=== PATIENT | female | born 1985 ===

== ENCOUNTER 2018-08-17 15:32 | Emergency (ER) | payer OTHER ==
[2018-08-17 15:32] VITALS: BMI 30.7
[2018-08-17 15:56] VITALS: RESP 18; TEMP 98.8
[2018-08-17 16:55] LABS: INFLUENZA A B NEGATIVE FOR FLU A/B (NEGATIVE)
[2018-08-17] MEDS ORDERED: Amoxicillin-Clav 875-125 mg Tab PO STA (17:57)
[2018-08-17 18:28] VITALS: BP 128/83; PULSE 88; O2SAT 98
--- NOTE | 2018-08-18 02:22 | ED PDOC ---
Arrival/HPI - General Chief Complaint: ENT Problem Time Seen by Provider: 08/17/18 15:35 Historian: Patient - History of Present Illness Narrative History of Present Illness (Text): 33 y/o with no significant PMH presents to ED c/o left ear pain and sore throat x 2 days. Associated intermittent productive cough. Taking ibuprofen for the pain, last dose yesterday, with mild relief. Denies fever, headache, dizziness, chills, hearing loss, ear discharge, vision changes, difficulty swallowing or breathing, SOB, chest pain, back pain, neck pain, abdominal pain, N/V, or any other associated symptoms. Past Medical History - Provider Review Nursing Documentation Reviewed: Yes - Infectious Disease Hx of Infectious Diseases: None - Psychiatric Hx Substance Use: No - Surgical History Hx Section: Yes (x1) - Anesthesia Hx Anesthesia: Yes Hx Anesthesia Reactions: No Hx Malignant Hyperthermia: No Family/Social History - Physician Review Nursing Documentation Reviewed: Yes Family/Social History: No Known Family HX Smoking Status: Never Smoked Hx Alcohol Use: No Hx Substance Use: No Allergies/Home Meds Allergies/Adverse Reactions: Allergies No Known Allergies Allergy (Verified 04/21/18 10:06) Review of Systems - Physician Review All systems were reviewed & negative as marked: Yes - Review of Systems Constitutional: Normal. absent: Fevers Eyes: Normal. absent: Vision Changes ENT: Sore Throat, Sinus Congestion, Other (ear pain) Respiratory: Cough, Sputum. absent: SOB Cardiovascular: Normal. absent: Chest Pain, Palpitations Gastrointestinal: Normal. absent: Abdominal Pain, Stool Changes, Nausea, Vomiting, Appetite Changes Genitourinary Female: Normal Musculoskeletal: Normal. absent: Arthralgias, Back Pain, Neck Pain Skin: Normal. absent: Rash Neurological: Normal. absent: Headache, Dizziness, Focal Weakness Endocrine: Normal Hemo/Lymphatic: Normal Psychiatric: Normal Physical Exam Vital Signs Reviewed: Yes Vital Signs Temp Pulse Resp BP Pulse Ox 08/17/18 17:32 88 18 128/83 98 08/17/18 15:32 98.8 F 77 18 141/91 H 99 Temperature: Afebrile Blood Pressure: Hypertensive Pulse: Regular Respiratory Rate: Normal Appearance: Positive for: Well-Appearing, Non-Toxic, Comfortable Pain Distress: None Mental Status: Positive for: Alert and Oriented X 3 - Systems Exam Head: Present: Atraumatic, Normocephalic Pupils: Present: PERRL Extroacular Muscles: Present: EOMI Conjunctiva: Present: Normal Ears: Present: Normal (right side), Erythema (left TM), TM Bulging (and dull left TM). No: Other (NO mastoid tenderness or bogginess) Mouth: Present: Moist Mucous Membranes Pharnyx: Present: ERYTHEMA (bilateral tonsils). No: EXUDATE, TONSILS ENLARGED, Peritonsilar Swelling, Uvular Deviation Nose (External): Present: Atraumatic Nose (Internal): Present: Moist, Engorged, Rhinorrhea Neck: Present: Normal Range of Motion. No: Meningeal Signs, MIDLINE TENDERNESS Respiratory/Chest: Present: Clear to Auscultation, Good Air Exchange. No: Respiratory Distress, Accessory Muscle Use Cardiovascular: Present: Regular Rate and Rhythm, Normal S1, S2, Peripheal Pulses Present. No: Murmurs Upper Extremity: Present: Normal Inspection, Normal ROM, NORMAL PULSES, Neurovascularly Intact, Capillary Refill < 2s. No: Cyanosis, Edema Lower Extremity: Present: Normal Inspection, NORMAL PULSES, Normal ROM, Neurovascularly Intact, Capillary Refill < 2 s. No: Edema Neurological: Present: GCS=15, CN II-XII Intact, Speech Normal, Motor Func Grossly Intact, Normal Sensory Function, Gait Normal Skin: Present: Warm, Dry, Normal Color. No: Rashes Lymphatic: Present: Cervical Adenopathy (left peritonsillar, submandibular) Psychiatric: Present: Alert, Oriented x 3, Normal Insight, Normal Concentration, Normal Affect, Normal Mood Medical Decision Making ED Course and Treatment: Initial Plan: * CXR * Rapid Strep * Rapid Flu * Ibuprofen Rapid flu and strep negative CXR negative for acute disease Diagnostic testing results and plan of care discussed with patient. Strict instructions given regarding prescription use, importance of followup, and signs/symptoms to return to ER including fever, chills, abdominal pain, headache, vision changes, SOB, or any other new/worsening symptoms. Pt verbalized understanding of discussion. Patient is A&Ox3, ambluating with steady gait, with vital signs stable for discharge. - Lab Interpretations Lab Results: Lab Results 08/17/18 16:24: Influenza Typ A,B (EIA) Negative for flu a/b, Grp A Beta Strep Ag Negative I have reviewed the lab results: Yes Interpretation: All labs normal - RAD Interpretation Narrative RAD Interpretations (Text): No active disease Radiology Orders: 08/17/18 16:46 CXR (PA/LAT) [CHEST TWO VIEWS (PA/LAT)] [RAD] Stat Logging Equipment Operator: ED Physician (Dr. Lake) - Medication Orders Current Medication Orders: Discontinued Medications Amoxicillin/Clavulanate Potassium (Augmentin 875 Mg-125 Mg Tab) 1 tab PO STAT STA; Protocol Stop: 08/17/18 17:58 Last Admin: 08/17/18 18:17 Dose: 1 tab Ibuprofen (Motrin Tab) 600 mg PO STAT STA Stop: 08/17/18 17:25 Last Admin: 08/17/18 17:41 Dose: 600 mg MAR Pain/Vitals Document 08/17/18 17:41 EWO (Rec[place] 08/17/18 17:41 [place] [facility] [place] Pain Reassessment Is This A Pain ReAssessment? No Sleep Is patient sleeping during reassessment? No Presence of Pain Presence of Pain Yes Pain Scale Used Protocol: PSCALES Pain Scale Used Numeric Location Pain Location Body Site Throat Description Constant Intensity 5 Scale Used Numeric Pain Behavior Guarding Disposition/Present on Arrival - Present on Arrival Any Indicators Present on Arrival: No History of DVT/PE: No History of Uncontrolled Diabetes: No Urinary Catheter: No History of Decub. Ulcer: No History Surgical Site Infection Following: None - Disposition Have Diagnosis and Disposition been Completed?: Yes Diagnosis: Otitis media Disposition: HOME/ ROUTINE Disposition Time: 18:00 Condition: IMPROVED Discharge Instructions (ExitCare): Ear Infections (Otitis Media) Additional Instructions: Eve augmentin cada 12 horas nyla 10 gomez. Tessalon perles para la tos cada 8 horas segn sea necesario Aumentar los fluidos Ibuprofeno / tylenol para el dolor Regrese a la stevo de emergencias con cualquier sntoma nuevo o que empeore Prescriptions: Amoxicillin/Clavulanate [Augmentin 875 MG-125 MG] 1 tab PO DAILY #19 tab Benzonatate [Tessalon Perle] 100 mg PO Q8H PRN #15 capsule PRN Reason: Cough [place] [facility] [place] [facility] [place] - Follow up with primary Tatiana Patel MD [Medical Doctor] - Follow up with primary Forms: [facility] ([place]an), WORK NOTE
--- NOTE | 2018-08-18 12:08 | RAD ---
Date of service: 08/17/2018 HISTORY: cough r/o pneumonia COMPARISON: No prior. TECHNIQUE: Chest PA and lateral FINDINGS: LUNGS: No active pulmonary disease. PLEURA: No significant pleural effusion identified. No pneumothorax apparent. CARDIOVASCULAR: No aortic atherosclerotic calcification present. Normal cardiac size. No pulmonary vascular congestion. OSSEOUS STRUCTURES: No significant abnormalities. VISUALIZED UPPER ABDOMEN: Normal. OTHER FINDINGS: None. IMPRESSION: No active disease.
== END 2018-08-17 18:28 | disposition home or self-care (01) ==
LOC: ED 15:32
DX: H66.92 Otitis media, unspecified, left ear (principal)

== ENCOUNTER 2018-09-04 10:14 | Outpatient (CLI) | payer OTHER | END 2018-09-04 10:15 | disposition home or self-care (01) | LOC: LAB 10:14 ==

== ENCOUNTER 2018-10-02 15:25 | Outpatient (CLI) | payer OTHER | END 2018-10-02 15:26 | disposition home or self-care (01) | LOC: LAB 15:25 ==

== ENCOUNTER 2018-10-03 10:51 | Outpatient (CLI) | payer OTHER | END 2018-10-03 10:52 | disposition home or self-care (01) | LOC: LAB 10:51 ==

== ENCOUNTER 2018-10-11 13:46 | Outpatient (CLI) | payer OTHER | END 2018-10-11 13:47 | disposition home or self-care (01) | LOC: LAB 13:46 ==